=== PATIENT | female | born 1945 | race Caucasian/White ===

== ENCOUNTER 2023-07-06 06:24 | Day surgery (SDC) | payer MEDICARE, OTHER ==
[2023-07-04 14:49] VITALS: BMI 37.1
[~2023-07-06 06:24] MED LIST: EPINEPHrine 0.3 MG, Dextrose 50% 3 ML in Ophthalmic Irrigation Solution 500 ML IRR SCH
[2023-07-06] MEDS ORDERED: Cyclopentolate 1% Opth Drop 2 ML BOT ONE (06:46)
[2023-07-06] MEDS ORDERED: PHENYLephrine 2.5% Ophth Soln 15 ml Bottle ONE (06:46)
[2023-07-06] MEDS ORDERED: Midazolam HCl 2 mg/2 ml Vial ONE (06:55)
[2023-07-06] MEDS ORDERED: fentaNYL 50 mcg/mL 1 mL Vial ONE (06:55)
[2023-07-06] MEDS ORDERED: PROPOFOL 200 MG/20 ML VIAL ONE (07:49)
[2023-07-06] MEDS ORDERED: Lidocaine 4% PF 5 ML AMP ONE (07:49)
[2023-07-06] MEDS ORDERED: Lidocaine 1% PF 5 ML VIAL ONE (07:49)
[2023-07-06] MEDS ORDERED: CEFAZOLIN 1 GM VIAL ONE (07:49)
[2023-07-06] MEDS ORDERED: Triamcinolone 40 MG/ML VIAL ONE (07:49)
[2023-07-06] MEDS ORDERED: Indocyanine Green 25 MG/10 ML VIAL ONE (07:49)
[2023-07-06] MEDS ORDERED: Maxitrol 0.1% Opth Oint 3.5 GM TUBE ONE (07:49)
[2023-07-06] MEDS ORDERED: Dextrose 50% Abboject 50 ML SYRINGE ONE (07:49)
[2023-07-06] MEDS ORDERED: Bupivacaine 0.75% 10 ML VIAL ONE (07:49)
== END 2023-07-06 09:40 | disposition home or self-care (01) ==
LOC: SDC 06:24
PROVIDERS: ATTEND Ophthalmology Retina Specialist
PROC: 08T53ZZ Resection of Left Vitreous, Percutaneous Approach (ICD-10-PCS; principal; 2023-07-06)
DX: H35.372 Puckering of macula, left eye (principal)
CPT/HCPCS: J0171; J0690; J2250; J2704; J3010; J3301; J3490; J7999

== ENCOUNTER 2024-03-19 12:06 | Inpatient (IN) | payer MEDICARE, OTHER ==
[~2024-03-19 12:06] MED LIST changes: -EPINEPHrine 0.3 MG, Dextrose 50% 3 ML in Ophthalmic Irrigation Solution 500 ML IRR SCH; +Iopamidol-370 76% 500 ML MDV (1 ML CHARGE) ONE
[2024-03-19] MEDS ORDERED: Tenecteplase 50 MG ONE (12:47)
[2024-03-19 12:55] LABS: PTT 27.3 sec (22.9-36.1); Prothrombin Time 13.4 sec (12.0-14.7)
[2024-03-19 13:01] LABS: Troponin I 0.015 ng/mL (< 0.028)
[2024-03-19 13:08] LABS: ALT (SGPT) 7 U/L (8-55); AST (SGOT) 22 U/L (5-34); Albumin 3.7 g/dL (3.4-4.8); Alkaline Phosphatase 105 U/L (40-110); Anion Gap 12 mmol/L (10-20); BUN (Urea Nitrogen) 16 mg/dL (9.8-20.1); Bilirubin, Total 0.3 mg/dL (0.2-1.2); Calc. Creatinine Clearance 0 mL/min (70-130); Calcium 10.5 mg/dL (7.8-10.44); Carbon Dioxide 25 mmol/L (23-31); Chloride 106 mmol/L (98-107); Estimated GFR 67; Glucose 219 mg/dL (83-110); Protein, Total 7.7 g/dL (5.8-8.1); Sodium 139 mmol/L (136-145)
[2024-03-19 13:18] LABS: #Basophils 0.04 10x3/uL (0.0-0.2); %Basophils 0.6 % (0.0-1.0); %Eosinophils 3.9 % (0.0-10.0); %Lymphocytes 28.2 % (21.0-51.0); %Monocytes 9.4 % (0.0-10.0); %Neutrophils 57.6 % (42.0-75.0); Hematocrit 31.9 % (36.0-47.0); Hemoglobin 9.6 g/dL (12.0-16.0); Mean Corpuscular HGB CONC 30.1 g/dL (32.0-36.0); Mean Corpuscular Hemoglobin 22.1 pg (27.0-31.0); Mean Corpuscular Volume 73.5 fL (78.0-98.0); Mean Platelet Volume 11.8 fL (7.4-10.4); Platelet Count 269 10x3/uL (130-400); RBC Distribution Width 17.3 % (11.5-14.5); Red Blood Cell (RBC) Count 4.34 mill/uL (4.20-5.40)
[2024-03-19 13:51] LABS: Bacteria/HPF None Seen HPF (None Seen); Bilirubin Negative (Negative); Blood, Urine Negative (Negative); CAUTI Indications for Culture Alt mental st,lethar; Clarity Clear (Clear); Glucose, Urine (Dipstick) 30 mg/dL (Negative); Ketone, Urine Negative (Negative); Leukocyte 250 Leu/uL (Negative); Nitrite Negative (Negative); Protein, Urine (Dipstick) 20 mg/dL (Neg-Trace); RBC/HPF 0-3 HPF (0-3); Specific Gravity, Urine 1.025 (1.002-1.036); Urobilinogen Normal mg/dL (Less than 2)
[2024-03-19 13:52] LABS: Hypochromia SLIGHT = 6-15 cells HPF (0-5); Microcytosis SLIGHT = 6-15 cells HPF (0-5); Ovalocytes SLIGHT = 2-5 cells HPF (0-1); Platelet Adequacy Comment Platelets Normal; Polychromasia SLIGHT = 2-3 cells HPF (0-2)
[2024-03-19 13:55] LABS: Urine Culture Reflex Yes Yes
[2024-03-19] MEDS ORDERED: HYDROcodone/Acetaminophen 5/325 mg Tablet PO PRN (14:13)
[2024-03-19] MEDS ORDERED: Ondansetron PF 4 MG/2 ML Vial IVP PRN (14:13)
[2024-03-19] MEDS ORDERED: Acetaminophen 325 MG TAB PO PRN (14:13)
[2024-03-19] MEDS ORDERED: Glucagon 1 MG/ML KIT IM PRN (14:15)
[2024-03-19] MEDS ORDERED: HumaLOG 300 UNITS/3 ML VIAL SC PRN (14:15)
[2024-03-19] MEDS ORDERED: Dextrose 5% in Water 1,000 ML IV PRN (14:15)
[2024-03-19] MEDS ORDERED: Dextrose 50% Abboject 50 ML SYRINGE SLOW IVP PRN (14:15)
[2024-03-19] MEDS ORDERED: Communication Order-Pharmacy FS SCH (14:16)
[2024-03-19] MEDS ORDERED: niCARdipine 25 MG in Sodium Chloride 0.9% 250 ML 250 ML IVPB PRN (14:16)
[2024-03-19] MEDS ORDERED: hydrALAZINE 20 MG/ML VIAL SLOW IVP PRN (14:16)
[2024-03-19 15:14] VITALS: BMI 38.1
[2024-03-20] MEDS: Labetalol HCl 100 MG/20 ML VIAL SLOW IVP PRN (00:34)
[2024-03-20] MEDS: Clopidogrel Bisulfate 75 MG TAB PO SCH (14:24)
[2024-03-20 18:51] LABS: #Basophils 0.03 10x3/uL (0.0-0.2); %Basophils 0.4 % (0.0-1.0); %Eosinophils 4.2 % (0.0-10.0); %Lymphocytes 24.3 % (21.0-51.0); %Monocytes 8.2 % (0.0-10.0); %Neutrophils 62.6 % (42.0-75.0); Hematocrit 33.3 % (36.0-47.0); Hemoglobin 9.8 g/dL (12.0-16.0); Mean Corpuscular HGB CONC 29.4 g/dL (32.0-36.0); Mean Corpuscular Volume 74.8 fL (78.0-98.0); Mean Platelet Volume 11.1 fL (7.4-10.4); Platelet Count 263 10x3/uL (130-400); RBC Distribution Width 17.7 % (11.5-14.5); Red Blood Cell (RBC) Count 4.45 mill/uL (4.20-5.40)
[2024-03-20 18:54] LABS: Hemoglobin A1c 8.2 % (4.0-6.0)
[2024-03-20 19:00] LABS: Anion Gap 15 mmol/L (10-20); BUN (Urea Nitrogen) 13 mg/dL (9.8-20.1); Calc. Creatinine Clearance 88 mL/min (70-130); Calcium 9.9 mg/dL (7.8-10.44); Carbon Dioxide 23 mmol/L (23-31); Cardiac Risk 4.3 (Less than 4.5); Chloride 107 mmol/L (98-107); Cholesterol 219 mg/dl (< 200 Desired); Estimated GFR 70; Glucose 182 mg/dL (83-110); HDL Cholesterol 51 mg/dL (>60 Neg Risk); LDL Cholesterol, Calculated 136 mg/dL; Potassium 3.6 mmol/L (3.5-5.1); Sodium 141 mmol/L (136-145); Triglycerides 161 mg/dL (Less than 150)
[2024-03-21] MEDS: Clopidogrel Bisulfate 75 MG TAB PO SCH (09:41)
[2024-03-21] MEDS: Amlodipine 5 MG TAB PO SCH (20:36)
[2024-03-22 06:40] LABS: Iron 25 ug/dL (50-170); Iron Binding Capacity, Total 384 mcg/dL (265-497)
[2024-03-22] MEDS: hydrALAZINE 25 MG TAB PO SCH (10:03)
[2024-03-22 12:08] VITALS: BP 176/82; TEMP 97.5
[2024-03-22] MEDS ORDERED: hydrALAZINE 25 MG TAB PO SCH (21:00)
== END 2024-03-22 13:49 | disposition home or self-care (01) | DRG 63 ==
LOC: ERS 12:06 → CCU 14:34 → 2SE 03-20 19:14
PROVIDERS: ADMIT Family Medicine; ATTEND Internal Medicine
DX: I63.9 Cerebral infarction, unspecified (principal); I10 Essential (primary) hypertension; E11.9 Type 2 diabetes mellitus without complications; E03.9 Hypothyroidism, unspecified; J45.909 Unspecified asthma, uncomplicated; K21.9 Gastro-esophageal reflux disease without esophagitis; I65.21 Occlusion and stenosis of right carotid artery; G47.33 Obstructive sleep apnea (adult) (pediatric); Z98.890 Other specified postprocedural states; Z90.49 Acquired absence of other specified parts of digestive tract; Z88.1 Allergy status to other antibiotic agents; Z88.2 Allergy status to sulfonamides; Z88.8 Allergy status to other drugs, medicaments and biological substances; Z88.5 Allergy status to narcotic agent; Z79.899 Other long term (current) drug therapy
CPT/HCPCS: 36415; 36416; 70450; 70496; 70498; 71045; 80048; 80053; 80061; 81001; 83036; 83540; 83550; 84443; 84484; 85025; 85610; 85730; 87086; 93005; 93306; 94760; 96374; J3101; Q9967

== ENCOUNTER 2024-04-09 07:21 | Outpatient (CLI) | payer MEDICARE, OTHER | END 2024-04-09 07:22 | disposition home or self-care (01) | LOC: BICMRI 07:21 → SCSMRI 07:22 | PROVIDERS: ATTEND Family Medicine | DX: R47.81 Slurred speech (principal); R90.89 Other abnormal findings on diagnostic imaging of central nervous system | CPT/HCPCS: 70551 ==

== ENCOUNTER 2025-09-09 03:20 | Emergency (ER) | payer MEDICARE, OTHER ==
[2025-09-09 04:37] LABS: Lipase 32.0 U/L (8-78)
[2025-09-09 04:39] LABS: CRP, High Sensitivity at Bryan 0.67 mg/dL (< or = 0.5)
[2025-09-09 04:44] LABS: ALT (SGPT) Less than 7 U/L (Less than 34); AST (SGOT) 27 U/L (11-34); Albumin 2.2 g/dL (3.1-4.5); Alkaline Phosphatase 60 U/L (40-110); Anion Gap 13 mmol/L (10-20); BUN (Urea Nitrogen) 24 mg/dL (9.8-20.1); Bilirubin, Total 0.4 mg/dL (0.3-1.2); Calc. Creatinine Clearance 0 mL/min (70-130); Calcium 8.9 mg/dL (7.8-10.44); Carbon Dioxide 24 mmol/L (23-31); Chloride 105 mmol/L (98-107); Globulin 3.5 g/dL (2.4-3.5); Glucose 287 mg/dL (83-110); Potassium 4.4 mmol/L (3.5-5.1); Sodium 138 mmol/L (136-145)
[2025-09-09] MEDS ORDERED: Ondansetron PF 4 MG/2 ML Vial ONE (05:18)
[2025-09-09 07:24] LABS: #Basophils 0.03 10x3/uL (0.0-0.2); #Eosinophils 0.10 10x3/uL (0.0-0.7); #Monocytes 0.51 10x3/uL (0.11-0.59); #Neutrophils 3.67 10x3/uL (1.40-6.50); %Basophils 0.5 % (0.0-1.0); %Eosinophils 1.6 % (0.0-10.0); %Lymphocytes 28.5 % (21.0-51.0); %Monocytes 8.4 % (0.0-10.0); %Neutrophils 60.5 % (42.0-75.0); Hematocrit 27.4 % (36.0-47.0); Hemoglobin 8.4 g/dL (12.0-16.0); Mean Corpuscular Hemoglobin 29.4 pg (27.0-31.0); Mean Corpuscular Volume 95.8 fL (78.0-98.0); Platelet Count 204 10x3/uL (130-400); Red Blood Cell (RBC) Count 2.86 mill/uL (4.20-5.40); White Blood Cell (WBC) Count 6.07 10x3/uL (4.8-10.8)
[2025-09-09] MEDS ORDERED: Iopamidol-370 76% 500 ML MDV (1 ML CHARGE) ONE (11:41)
== END 2025-09-09 10:30 ==
LOC: ERS 03:20
DX: M62.81 Muscle weakness (generalized) (principal); R05.9 Cough, unspecified; I10 Essential (primary) hypertension; Z86.73 Personal history of transient ischemic attack (TIA), and cerebral infarction without residual deficits
CPT/HCPCS: 36415; 71045; 71260; 74177; 80053; 83605; 83690; 84484; 85025; 86141; 87428; 93005; 94760; 96374; J2405